=== PATIENT | female | born 1970 | race Caucasian/White ===

== ENCOUNTER → 2016-11-10 | Outpatient (CLI) | payer BC ==
[~2016-11-10] MED LIST: B COCAP3 PO; BND25X PO; CARV6.252 PO; CYCL10TA6 PO; DICL-201 PO; DICL1TAB5 PO; FIBER TABLETS; FLX10 PO; IBUP1CAP9 PO; LRTUNK; MULT-506 PO; MULT-884 PO; OMEG10007 PO; OMEG5CAP PO; OXYC-57 PO; STOOL SOFTENER; TRAM-10 PO; VITAMIN B COMPLEX; VNTHFA/IN INH
== END | disposition home or self-care (01) ==
LOC: C.PAPS 13:31
PROVIDERS: ATTEND Obstetrics & Gynecology
DX: Z01.419 Encounter for gynecological examination (general) (routine) without abnormal findings (principal)

== ENCOUNTER → 2016-11-10 | Outpatient (CLI) | payer BC | END | disposition home or self-care (01) | LOC: C.PATHSPEC 13:22 | PROVIDERS: ATTEND Obstetrics & Gynecology | DX: N92.0 Excessive and frequent menstruation with regular cycle (principal) ==

== ENCOUNTER → 2016-12-15 | Day surgery (SDC) | payer BC ==
[2016-12-07 11:12] VITALS: Ht 157.5 cm; Wt 86.4 kg
[~2016-12-15] VITALS: Ht 157.5 cm; Wt 86.4 kg
[~2016-12-15] MED LIST changes: +ATROPINE SULFATE 0.1 MG/ML 5ML SYR IV PRN; -BND25X PO; -CYCL10TA6 PO; +DEXAMETHASONE SOD INJ 4 MG/ML VIAL ONE; -DICL1TAB5 PO; +EpHEDrine SULFATE INJ 50 MG/ML AMP IV PRN; +FENTANYL CITRATE INJ 50 MCG/1 ML 2 ML VIAL ONE; -FIBER TABLETS; +FLUMAZENIL 0.1 MG/1 ML 10 ML VIAL IV PRN; +GLYCOPYRROLATE INJ 0.2 MG/ML VIAL ONE; +HYDROmorphone INJ 2 MG/ML SYR/VIAL IV PRN; +IBUPROFEN 600 MG TAB PO PRN; +KETOROLAC TROMETHAMINE 30 MG/ML VIAL IV. PRN; +KETOROLAC TROMETHAMINE 30 MG/ML VIAL ONE; +LABETALOL HCL IV 5 MG/ML 20ML IV PRN; +LACTATED RINGER'S 1000ML 1,000 ML IV SCH; +LIDOCAINE HCL 2% 2 ML VIAL (20MG/ML) ONE; -LRTUNK; +MEPERIDINE HCL 25 MG/ML CARP IV PRN; +MIDAZOLAM HCL 1 MG/ML 2ML VIAL ONE; -MULT-884 PO; +NALOXONE HCL 0.4 MG/1 ML VIAL/CARP IV PRN; +NURSING VERBAL MED ORDER ONE; -OMEG10007 PO; +ONDANSETRON INJ 2 MG/ML 2 ML VIAL IV PRN; +ONDANSETRON INJ 2 MG/ML 2 ML VIAL ONE; +OXYCODONE/ACETAMINOPHEN 5-325 TAB PO PRN; +PHENYLEPHRINE 100MCG/ML 5ML SYR IV PRN; +PROMETHAZINE HCL INJ 25 MG in SODIUM CHLORIDE 0.9% 50ML 50 ML IV PRN; +PROPOFOL IV EMULSION 10 MG/ML 20 ML VIAL IV ONE; +SODIUM CHLORIDE 0.9% 1000ML 1,000 ML IV SCH; -STOOL SOFTENER; -VITAMIN B COMPLEX
--- NOTE | 2016-12-15 07:52 | History & Physical Bridge - [place] ---
H&P Re-Evaluation Bridge Note: I have examined the patient, reviewed the History & Physical and in the interval since the performance of the History & Physical I have noted the following changes of clinical significance: No changes noted
--- NOTE | 2016-12-15 09:24 | [facility] Post Operative Brief Note ---
Immediate Operative Summary Operative Date Dec 15, 2016. Pre-Operative Diagnosis Menorrhagia Post-Operative Diagnosis Same Procedure(s) Performed Dilatation And Curettage, Hysteroscopy with Rollerball Endometrial Ablation Surgeon Dr. Gaffney Buffet Server Surgeon(s) None Estimated Blood Loss 20ml Findings Bilateral tubal ostia seen Specimens A. Endometrial Curettings Drains None Anesthesia General Complication(s) None Disposition Recovery Room / PACU
--- NOTE | 2016-12-15 09:25 | Discharge Instructions ---
Discharge Instructions Admission Reason for Admission: Menorrhagia Discharge Discharge Diagnosis / Problem: Menorrhagia Discharge Goals Goal(s): Routine recovery after surgery Activity Recommendations Activity Limitations: per Instructions/Follow-up section . Instructions / Follow-Up Instructions / Follow-Up ACTIVITY RECOMMENDATIONS: * Avoid tampons, douching, hot tubs, pools, and intercourse until bleeding has stopped. * May shower as usual. * No strenuous activity for 24-48 hours. After 24-48 hours, you may do anything you feel like doing (driving and sports are okay). SPECIAL CARE INSTRUCTIONS: Special Diet: * Mild nausea may occur in the immediate post-operative period. * Take clear liquids such as tea, cola or bouillon until all nausea has subsided; you may then resume your normal diet. Special Care: * Light bleeding and vaginal spotting can last from a few days to 3-4 weeks. Call your doctor if bleeding becomes heavier than the heaviest part of your period. * Check your temperature twice a day for one week. If it goes above 100.4 degrees Fahrenheit (38.0 Celsius), notify your doctor. * Call your doctor's office for an appointment for 6 weeks after your surgery. FOLLOW-UP VISIT: Call your doctor's office for an appointment for 6 weeks after your surgery. Current Hospital Diet Patient's current hospital diet: Discharge Diet Recommended Diet: Regular Diet Procedures Procedures Performed: Dilatation And Curettage, Hysteroscopy with Rollerball Endometrial Ablation Pending Studies Studies pending at discharge: no Medical Emergencies . Who to Call and When: Medical Emergencies: If at any time you feel your situation is an emergency, please call 911 immediately. . Non-Emergent Contact Non-Emergency issues call your: Primary Care Provider . . "Provider Documentation" section prepared by Simone Gaffney. VTE Core Measure Inpt VTE Proph given/why not?: Treatment not indicated
--- NOTE | 2016-12-15 09:37 | OPERATIVE REPORT ---
DATE OF OPERATION: 12/15/2016 PREOPERATIVE DIAGNOSIS: Menorrhagia. POSTOPERATIVE DIAGNOSIS: Menorrhagia. PROCEDURE: Hysteroscopy, D\T\C, endometrial ablation with rollerball. SURGEON: Dr. Gaffney. WOOD BUFFER: None. ESTIMATED BLOOD LOSS: 20 mL. FINDINGS: The patient did appear to have bilateral tubal ostia visualized. SPECIMENS: Endometrial curettings. DRAINS: None. ANESTHETIC: General. COMPLICATIONS: None. DISPOSITION: Recovery. Elyssa was given a general anesthetic, prepped and draped in dorsolithotomy position in [facility]. Bladder drained. Uterus examined and found to be slightly anteverted. Weighted speculum placed in the vagina, single tooth tenaculum on anterior lip of the cervix. Cervix then carefully and methodically dilated starting with #13 dilator progressing to a #23 dilator. On inspection with a 5 mm hysteroscope using sorbitol as her base solution, I was able to view the cavity. There were no defects, perforation or pathology seen. 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 We elected to perform rollerball ablation. First, we performed D\T\C curettage to obtain tissue and then using the dilator we dilated further progressively to a #29 dilator. Using a 10 mm operative hysteroscope using cut setting 200 coag 100 we ablated the endometrium primarily using cut. First starting at the tubal ostial regions then continuing down to incorporate the entire endometrium down to the internal cervical os. Once the ablation was complete, hemostasis was excellent. IV Toradol was given. Instruments removed from the cervix and vagina. Sponge and instrument counts correct. I attest to the content of the Intraoperative Record and any orders documented therein. Any exceptio ns are noted below.
[2016-12-15] MEDS: FENTANYL CITRATE INJ 50 MCG/1 ML 2 ML VIAL IV PRN ×2 (09:44→09:55)
--- NOTE | 2016-12-15 10:09 | Anesthesia Progress Nt - [facility] ---
Anesthesia Post Op Note Date & Time Dec 15, 2016 at 10:09 Vital Signs Pain Intensity: 4.0 Vital Signs Past 12 Hours Date Time Temp Pulse Resp B/P Pulse Ox O2 Delivery O2 Flow Rate FiO2 12/15/16 09:35 36.5 52 16 137/36 97 Mask 6 12/15/16 08:44 36.9 89 16 191/108 99 Room Air Notes Mental Status: alert / awake / arousable, participated in evaluation Pt Amnestic to Procedure: Yes Nausea / Vomiting: adequately controlled Pain: adequately controlled Airway Patency, RR, SpO2: stable & adequate BP & HR: stable & adequate Hydration State: stable & adequate Anesthetic Complications: no major complications apparent
[2016-12-15 10:10] VITALS: TEMP 36.5
[2016-12-15 10:44] VITALS: BP 130/79; PULSE 78; O2SAT 98
== END | disposition home or self-care (01) ==
LOC: X.SURG 07:51
PROVIDERS: ATTEND Obstetrics & Gynecology
DX: N85.9 Noninflammatory disorder of uterus, unspecified (principal); N92.0 Excessive and frequent menstruation with regular cycle; Z87.891 Personal history of nicotine dependence; Z88.1 Allergy status to other antibiotic agents

== ENCOUNTER 2017-06-19 14:23 | Emergency (ER) | payer BC ==
[~2017-06-19] VITALS: Ht 157.5 cm; Wt 90.7 kg
[~2017-06-19 14:23] MED LIST changes: -ATROPINE SULFATE 0.1 MG/ML 5ML SYR IV PRN; -CARV6.252 PO; -DEXAMETHASONE SOD INJ 4 MG/ML VIAL ONE; -EpHEDrine SULFATE INJ 50 MG/ML AMP IV PRN; -FENTANYL CITRATE INJ 50 MCG/1 ML 2 ML VIAL ONE; -FLUMAZENIL 0.1 MG/1 ML 10 ML VIAL IV PRN; -GLYCOPYRROLATE INJ 0.2 MG/ML VIAL ONE; -HYDROmorphone INJ 2 MG/ML SYR/VIAL IV PRN; -IBUPROFEN 600 MG TAB PO PRN; -KETOROLAC TROMETHAMINE 30 MG/ML VIAL IV. PRN; -KETOROLAC TROMETHAMINE 30 MG/ML VIAL ONE; -LABETALOL HCL IV 5 MG/ML 20ML IV PRN; -LACTATED RINGER'S 1000ML 1,000 ML IV SCH; -LIDOCAINE HCL 2% 2 ML VIAL (20MG/ML) ONE; -MEPERIDINE HCL 25 MG/ML CARP IV PRN; -MIDAZOLAM HCL 1 MG/ML 2ML VIAL ONE; -NALOXONE HCL 0.4 MG/1 ML VIAL/CARP IV PRN; -NURSING VERBAL MED ORDER ONE; -ONDANSETRON INJ 2 MG/ML 2 ML VIAL IV PRN; -ONDANSETRON INJ 2 MG/ML 2 ML VIAL ONE; -OXYCODONE/ACETAMINOPHEN 5-325 TAB PO PRN; -PHENYLEPHRINE 100MCG/ML 5ML SYR IV PRN; -PROMETHAZINE HCL INJ 25 MG in SODIUM CHLORIDE 0.9% 50ML 50 ML IV PRN; -PROPOFOL IV EMULSION 10 MG/ML 20 ML VIAL IV ONE; -SODIUM CHLORIDE 0.9% 1000ML 1,000 ML IV SCH
[2017-06-19 14:32] VITALS: TEMP 36.6; Ht 157.5 cm; Wt 90.7 kg
[2017-06-19] MEDS ORDERED: SODIUM CHLORIDE 0.9% 1000ML 1,000 ML IV STA (17:11)
[2017-06-19] MEDS ORDERED: CARV6.252 PO (17:13)
--- NOTE | 2017-06-19 17:31 | DIAGNOSTIC IMAGING REPORT ---
SINGLE VIEW CHEST CLINICAL HISTORY: Palpitations. FINDINGS: An AP, portable, upright chest radiograph is compared to study dated 10/02/2014. The examination is degraded by portable technique and patient rotation. The cardiomediastinal silhouette is unremarkable. The lungs and pleural spaces are clear. No pneumothorax is seen. The bony thorax is grossly intact. IMPRESSION: No active disease in the chest. Electronically signed by: Daniel Fragoso M.D. 06/19/2017 5:30 PM Dictated Date/Time: 06/19/2017 5:29 PM
[2017-06-19 17:34] LABS: BASO % 0.2 %; BASO ABS # 0.02 K/uL (0-0.2); COMPLETE YES; EOS % 2.3 %; HEMATOCRIT 43.8 % (37-47); IG% 0.2 %; LYMPH % 26.1 %; LYMPH ABS # 2.53 K/uL (1.2-3.4); MEAN CELL VOLUME 84.4 fL (80-100); MEAN CORPUSCULAR HEMOGLOBIN 30.1 pg (25-34); MEAN CORPUSCULAR HGB CONC 35.6 g/dl (32-36); MEAN PLATELET VOLUME 10.7 fL (7.4-10.4); MONO % 11.2 %; PLATELET COUNT 233 K/uL (130-400); RED BLOOD COUNT 5.19 M/uL (4.2-5.4); WHITE BLOOD COUNT 9.71 K/uL (4.8-10.8)
[2017-06-19 17:56] LABS: ALT/SGPT 22 U/L (12-78); BLOOD UREA NITROGEN 9 mg/dl (7-18); BUN/CREATININE RATIO 10.3 (10-20); CALCIUM 8.9 mg/dl (8.5-10.1); CARBON DIOXIDE 27 mmol/L (21-32); CHLORIDE 108 mmol/L (98-107); GLUCOSE 83 mg/dl (70-99); POTASSIUM 3.8 mmol/L (3.5-5.1); PREG INTERNAL NEGATIVE QC NEG CLEAR BACKGROUND; PREG INTERNAL POSITIVE QC POS CONTROL LINE; SODIUM 141 mmol/L (136-145)
[2017-06-19 18:13] LABS: ALKALINE PHOSPHATASE 66 U/L (45-117); AST/SGOT 18 U/L (15-37); MAGNESIUM 2.3 mg/dl (1.8-2.4)
--- NOTE | 2017-06-19 19:17 | EMERGENCY ROOM VISIT NOTE ---
History First contact with patient: 16:40 Chief Complaint: DIZZY Stated Complaint: FLUTTERING IN CHEST, DIZZINESS Nursing Triage Summary: triage note: pt ambulatory to triage. pt reports for the past week "i have had fluttering in my chest." pt also reports dizziness. History of Present Illness The patient is a 46 year old female who presents to the Emergency Room with complaints of palpitations intermittently for the past 6 days. The patient states that she has had a fluttering, tight feeling in her chest. She states that she has at least one episode daily and the symptoms last for 30 minutes to 1 hour. The patient states that this morning, she developed sharp pains in her chest. She sometimes has dizziness when the symptoms occur. She has had issues with palpitations intermittently since September. She states that she has been treated for hypertension and has had palpitations as side effects of her medications, including lisinopril and hydrochlorothiazide. She reports she has been taking carvedilol recently which seems to be working well for her. She states that she had an echo 3 years ago due to chest pain but has not had cardiology follow-up since then. She denies any syncope, lightheadedness, shortness of breath. She denies any drug use or new medications. Review of Systems A complete 10 point review of systems was reviewed with the patient with pertinent positives and negatives as per history of present illness. All else were negative. Family History No pertinent family history Social History Smoking Status: Never Smoker Occupation Status: employed Current/Historical Medications Scheduled Carvedilol (Coreg), 6.25 MG PO BID Scheduled PRN Albuterol Hfa (Ventolin Hfa), 2-4 PUFFS INH Q6H PRN for SOB/Wheezing Physical Exam Vital Signs Date Time Temp Pulse Resp B/P (MAP) Pulse Ox O2 Delivery O2 Flow Rate FiO2 06/19/17 19:31 74 18 153/92 98 06/19/17 17:31 87 16 145/89 98 Room Air 06/19/17 14:32 36.6 101 18 158/110 97 Room Air Physical Exam VITALS: Vitals are noted on the nurse's note and reviewed by myself. Vital signs stable. GENERAL: This is a 46-year-old female, in no acute distress, nondiaphoretic, well-developed well-nourished. HEENT: Normocephalic. PERRLA. EOMI. Mucous membranes moist. Neck is supple without nuchal rigidity. HEART: Regular rate and rhythm without murmurs gallops or rubs. LUNGS: Clear to auscultation bilaterally without wheezes, rales or rhonchi. NEURO: Patient was alert and oriented to person place and time. Medical Decision & Procedures ER Provider Diagnostic Interpretation: SINGLE VIEW CHEST CLINICAL HISTORY: Palpitations. FINDINGS: An AP, portable, upright chest radiograph is compared to study dated 10/02/2014. The examination is degraded by portable technique and patient rotation. The cardiomediastinal silhouette is unremarkable. The lungs and pleural spaces are clear. No pneumothorax is seen. The bony thorax is grossly intact. IMPRESSION: No active disease in the chest. Laboratory Results 06/19/17 17:19 Red Blood Count 5.19, Mean Corpuscular Volume 84.4, Mean Corpuscular Hemoglobin 30.1, Mean Corpuscular Hemoglobin Concent 35.6, Mean Platelet Volume 10.7, Neutrophils (%) (Auto) 60.0, Lymphocytes (%) (Auto) 26.1, Monocytes (%) (Auto) 11.2, Eosinophils (%) (Auto) 2.3, Basophils (%) (Auto) 0.2, Neutrophils # (Auto ) 5.83, Lymphocytes # (Auto) 2.53, Monocytes # (Auto) 1.09, Eosinophils # (Auto ) 0.22, Basophils # (Auto) 0.02 06/19/17 17:19 Test 06/19/17 17:19 White Blood Count 9.71 K/uL (4.8-10.8) Red Blood Count 5.19 M/uL (4.2-5.4) Hemoglobin 15.6 g/dL (12.0-16.0) Hematocrit 43.8 % (37-47) Mean Corpuscular Volume 84.4 fL (80-100) Mean Corpuscular Hemoglobin 30.1 pg (25-34) Mean Corpuscular Hemoglobin Concent 35.6 g/dl (32-36) Platelet Count 233 K/uL (130-400) Mean Platelet Volume 10.7 fL (7.4-10.4) Neutrophils (%) (Auto) 60.0 % Lymphocytes (%) (Auto) 26.1 % Monocytes (%) (Auto) 11.2 % Eosinophils (%) (Auto) 2.3 % Basophils (%) (Auto) 0.2 % Neutrophils # (Auto) 5.83 K/uL (1.4-6.5) Lymphocytes # (Auto) 2.53 K/uL (1.2-3.4) Monocytes # (Auto) 1.09 K/uL (0.11-0.59) Eosinophils # (Auto) 0.22 K/uL (0-0.5) Basophils # (Auto) 0.02 K/uL (0-0.2) RDW Standard Deviation 40.7 fL (36.4-46.3) RDW Coefficient of Variation 13.2 % (11.5-14.5) Immature Granulocyte % (Auto) 0.2 % Immature Granulocyte # (Auto) 0.02 K/uL (0.00-0.02) Anion Gap 6.0 mmol/L (3-11) Est Creatinine Clear Calc Drug Dose 81.8 ml/min Estimated GFR () 88.9 Estimated GFR (Non- 76.7 BUN/Creatinine Ratio 10.3 (10-20) Calcium Level 8.9 mg/dl (8.5-10.1) Magnesium Level 2.3 mg/dl (1.8-2.4) Total Bilirubin 0.2 mg/dl (0.2-1) Aspartate Amino Transf (AST/SGOT) 18 U/L (15-37) Alanine Aminotransferase (ALT/SGPT) 22 U/L (12-78) Alkaline Phosphatase 66 U/L (45-117) Troponin I < 0.015 ng/ml (0-0.045) Total Protein 7.5 gm/dl (6.4-8.2) Albumin 3.8 gm/dl (3.4-5.0) Globulin 3.7 gm/dl (2.5-4.0) Albumin/Globulin Ratio 1.0 (0.9-2) Thyroid Stimulating Hormone (TSH) 2.360 uIu/ml (0.300-4.500) Human Chorionic Gonadotropin, Qual NEG (NEG) Medications Administered Medications (Trade) Dose Ordered Sig/Negrita Route Start Time Stop Time Status Last Admin Dose Admin Sodium Chloride 1,000 ml @ 999 mls/hr Q1H1M STAT IV 06/19/17 17:11 06/19/17 18:11 DC 06/19/17 17:26 999 MLS/HR ECG Rate (beats per minute): 93 Rhythm: normal sinus Findings: nonspecific-ST abn (Anterolateral) Change: no significant change ED Course The patient was evaluated as above. Labs were drawn and IV access was obtained. Patient was medicated with 1 L normal saline solution. Patient was reevaluated and felt better after receiving fluids. Discharge instructions were reviewed with the patient. The patient verbalized understanding of my assessment and treatment plan and was discharged home in good condition. Medical Decision Differential diagnosis includes acute coronary syndrome, pulmonary embolism, arrhythmia, thyroid abnormalities, electrolyte abnormality, myocarditis, endocarditis, among others. The patient is a 46-year-old female who presents today complaining of palpitations. Labs revealed no leukocytosis, anemia or concerning electrolyte abnormalities. Serum hCG was negative. TSH showed a euthyroid state. Chest x- ray was unremarkable. EKG showed nonspecific T-wave abnormalities which appear to be similar to patient's previous EKG. The patient did have some episodes of palpitations while on the electronic device monitor which seemed to correlate with PACs. There were no runs of any concerning arrhythmias. The patient was encouraged to follow up with cardiology or her primary care provider. She may need a Holter monitor and echocardiogram. The patient's case was reviewed with Dr. Johns, ED attending physician, who agreed with my assessment and treatment plan. Based on the patient's presentation and work up, I feel the patient is stable for outpatient treatment. The patient was educated to return to the emergency department for any worsening of their current condition or new/concerning symptoms. She will follow up with her PCP. Medication Reconcilliation Current Medication List: was personally reviewed by me Blood Pressure Screening Patient's blood pressure: Elevated blood pressure Blood pressure disposition: Referred to PCP Impression Primary Impression: Palpitations Departure Information Dispostion Home / Self-Care Condition GOOD Referrals Konrad Freeman M.D. (PCP) Patient Instructions My [facility] [employer] [facility] Additional Instructions The monitor today showed some premature atrial contractions. These may be the cause of your heart fluttering. You may need further testing such as an echocardiogram or Holter monitor. You may follow up with your primary care provider or cardiology to schedule this. Return to the emergency department with severe chest pain, shortness of breath, worsening symptoms or any other new/concerning symptoms.
[2017-06-19 19:31] VITALS: BP 153/92; PULSE 74; O2SAT 98
== END 2017-06-19 19:32 | disposition home or self-care (01) ==
LOC: C.EDB 14:24 → C.EDC 19:32
DX: R00.2 Palpitations (principal)

== ENCOUNTER 2019-05-17 07:41 | Inpatient (IN) ==
--- OUTSIDE RECORDS SUMMARY | 2019-05-17 07:47 | External Medical Summary | Continuity of Care Document ---
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 Refills: 0 Fish Oil CAPS , M.D. Refills: 0 Vitamin B Complex TABS , M.D. Refills: 0 Ibuprofen CAPS , M.D. Refills: 0 Cyclobenzaprine HCl - 7.5 MG Oral Tablet , M.D. Refills: 0 Diclofenac Sodium 75 MG Oral Tablet Delayed Release , M.D. Refills: 0 Procedures History of Colposcopy With Loop Electrode Excision Of The Ce rvix Status: Completed History of Oral Surgery Tooth Extraction Status: Completed Immunizations Immunizations not documented Family History Sister Family history of Idiopathic Thrombocytopenic Purpura Status : Active Unknown Family Member Family history of Thyroid Disorder (V18.19) Status: Active Comments: Family History Brother Family history of Behcet's Syndrome Status: Active Family history of Compartment Syndrome Status: Active Mother Family history of aortic aneurysm (V17.49) (Z82.49) Status: Active Family history of hypothyroidism (V18.19) (Z83.49) Status: A ctive Father Family history of hypertension (V17.49) (Z82.49) Status: Act peter Social History - Smoking Status Former smoker Plan of Treatment Planned Observations Planned Goals not documented Results No Known Results Results not documented
[2019-05-17] MEDS ORDERED: fentaNYL citrate 100 MCG/2 ML VIAL IV STA ×2 (07:55→09:49)
[2019-05-17] MEDS ORDERED: SODIUM CHLORIDE 0.9% 1000ML 1,000 ML IV ONE (07:55)
--- NOTE | 2019-05-17 08:14 | Emergency Department Note ---
ED Provider Note CHIEF COMPLAINT: Fall, left ankle injury HISTORY OF PRESENTING ILLNESS: This is a 48-year-old female who presents to the emergency department via EMS with complaint of a fall in the left ankle injury. Patient states that she was getting ready for a yard sale and was carrying a large box down her front steps, states she missed 2-3 steps and fell forward landing on the box. She denies hitting her head and denies loss of consciousness. She is unsure exactly how the ankle was injured, but states that her left ankle "felt floppy and like it was out of place." The ankle is severely painful with any movement, she has noticed some mild swelling and bruising as well. She states the pain in the ankle is bothering her the most, it is throbbing, constant, worse with movement, better with rest, and currently rates it as 5/10. She received a dose of IV fentanyl from EMS in route, which she states did help with the pain, but she states it is starting to worsen again. She reports a previous sprain to this ankle, but denies any other frac tures or surgeries. She also has an abrasion to her right knee and right ankle, but states she does not have pain in these joints. She has not attempted to ambulate since the injury. She denies any chest pain, abdominal pain, back pain, neck pain, shortness of breath, dizziness or syncope, headache, or vision changes. She does not take any blood thinner medication. Her tetanus is up-to-date. She denies chance of , noting that she had a uterine ablation in the past. REVIEW OF SYSTEMS: A complete 10 point review of systems was reviewed with the patient with pertinent positives and negatives as per history of present illness. All else were negative. PAST MEDICAL HISTORY: Hypertension, palpitations, uterine ablation SOCIAL HISTORY: Lives at home, denies tobacco use ALLERGIES: Reviewed in chart PHYSICAL EXAM: CONSTITUTIONAL: Pleasant and cooperative. No acute distress. Well appearing and well nourished. HEENT: Normocephalic, atraumatic. PERRL, EOMI. airway patent. NECK: Supple, full active range of motion without discomfort. No midline tenderness to palpation of the cervical spine. RESPIRATORY: Clear to auscultation bilaterally with no wheezing, crackles, rhonchi or stridor. Equal expansion bilaterally. CARDIOVASCULAR: Regular rate and rhythm with no murmurs, rubs or gallops. Normal peripheral perfusion, 2+ distal pulses in all 4 extremities. No edema. GASTROINTESTINAL: Soft, nontender, nondistended. No rebound tenderness or guarding. Bowel sounds present in all quadrants. No CVA tenderness bilaterally. MUSCULOSKELETAL: The left ankle is obviously deformed, mildly swollen throughout, tender over both the medial malleolus and the lateral malleolus. Th ere is a wound over the medial aspect of the ankle with some bleeding, concerning for open fracture. There is fifth metatarsal tenderness. There is no tenderness over the rest of the foot. There is tenderness extending about retirement up the tibia/fibula, no proximal tibia/fibular tenderness, no pain with range of motion in the left knee. No tenderness over the left hip. The foot and toes are warm and well-perfused. Dorsalis pedis pulse 2+. Sensation to pain and light touch is intact. Capillary refill less than 2 seconds. INTEGUMENTARY: No rash or other significant dermatologic conditions noted. NEUROLOGIC: Alert and oriented X 4 with normal affect. Normal speech. ED COURSE AND MEDICAL DECISION MAKING: CC: Patient presenting with complaint of fall, left ankle injury DIFFERENTIAL DIAGNOSIS: Includes, but not limited to ankle sprain/strain, contusion, hematoma, abrasion, open fracture, dislocation, among others IMAGING: LEFT FOOT 3 VIEWS CLINICAL HISTORY: Fall with left foot injury. FINDINGS: 3 views of the left foot are obtained. No prior studies are available for comparison at the time of dictation. The skeletal structures are well mineralized. Distal tibial and fibular fractures are noted in the ankle. There is a distracted avulsion fracture of the medial malleolus. No fracture is seen in the foot. The joint spaces of the foot are preserved. Soft tissue edema, joint effusion, subcutaneous gas are noted involving the ankle. IMPRESSION: 1. There is no radiographic evidence of left foot fracture. 2. Distal ankle fractures as above. ----- XR ankle LT min 3V routine CLINICAL HISTORY: 48 years-old Female presenting with fall, injury. TECHNIQUE: Frontal, oblique, and lateral views of the left ankle were obtained. COMPARISON: None. FINDINGS: Transversely oriented fracture of the medial malleolus at the level of the ankle mortise. 3 mm of lateral displacement of the fracture fragment relative to the patella. 5-6 mm of diastases at the fracture plane. Obliquely oriented fracture of the distal fibular metaphysis extending from the posterior cortex proximally to the anterior cortex distally and from the lateral cortex proximally to the medial cortex distally. This is at the level of the ankle mortise. This is an open fracture with extensive associated soft tissue emphysema and soft tissue swelling along the anterior and medial lower leg. The distal fibular fracture fragment remains congruent with the talus. A posterior malleolar fracture is not radiographically apparent. Os trigonum suspected. IMPRESSION: Open grade 4 supination external rotation injury pattern. Medial and lateral malleoli fractures with a presumed posterior malleoli fracture. ----- XR tibia fibula LT 2V CLINICAL HISTORY: 48 years-old Female presenting with fall, injury. TECHNIQUE: Frontal and lateral views of the left lower leg were obtained. COMPARISON: None. FINDINGS: The joint congruent. Transverse fracture of the medial malleolus with mild lat eral displacement and diastases. Oblique fracture of the distal fibula level of the syndesmosis. Mild comminution of the proximal aspect of the distal fibular fracture plane. Posterior malleolus fracture also noted. Extensive soft tissue swelling and soft tissue emphysema along the anterior aspect of the lower leg consistent with an open fracture injury. No additional more proximal fracture is evident. IMPRESSION: Montiel B grade 4 supination external rotation injury pattern with open trimalleolar fractures. MEDICATION RECONCILIATION: I attest that I have personally reviewed the patient's current medication list. INITIAL VITAL SIGNS REVIEW: I reviewed the patient's initial vital signs and interpret them as follows: T: Afebrile; BP: Normotensive; HR: Within normal limits; RR: Within normal limits; Pulse Ox: Within normal limits on room air. Blood pressure screening: The patient was found to have normal blood pressure on screening and does not require follow-up for repeat blood pressure check. MDM SUMMARY: Patient was evaluated at bedside, history and physical exam performed. Patient is alert and oriented, in no acute distress, but appears uncomfortable from pain, resting in stretcher. She is neurologically intact no focal deficits. There is obvious deformity of the left ankle, with a medial wound suspicious for an open fracture. The Betadine soaked gauze was placed over the wound pending x-rays. She is neurovascularly intact distal to the injury. Abrasions noted to the right knee and right ankle, but no joint tenderness. Orders were placed at bedside for IV fentanyl for pain, x-rays of the foot, ankle, and tibia/fibula to evaluate for trauma. Patient discussed with Dr. Olivas, who agrees with my assessment, plan, and disposition. Imaging reviewed as above, noting a grade 4 Montiel B open fracture. The patient is being kept NPO, she last ate or drank last evening. 2,000mg IV Ancef ordered for open fracture prophylaxis. I spoke on the phone with Dalton Bedoya PA-C with orthopedic surgery, who agrees to evaluate the patient. Preop chest x-ray, EKG, and labs were ordered. Patient was placed in a posterior Ortho-Glass splint for stabilization by the technical services coordinator under my supervision, position was satisfactory and patient was neurovascularly intact upon recheck. Patient reassessed multiple times throughout ED stay, she has remained hemodynamically stable, neurovascularly intact, and her pain has been well controlled with IV fentanyl. The patient was updated on all results and plan for admission and surgery, she verbalized understanding and was agreeable to this plan. Plan is for surgery with Dr. Salazar this afternoon. The patient was stable at time of admission. The chart was completed utilizing [employer] voice recognition software. Grammatical errors, random word insertions, pronoun errors, and incomplete sentences are an occasional consequence of this system due to software limitations, ambient noise, and hardware issues. Any formal questions or concerns about the content, text, or information contained within the body of this dictation should be directly addressed to the nurse practitioner for clarification. Impression & Plan Open trimalleolar fracture Past Med/Surg History Medical History Palpitations (Acute) HTN (hypertension) (Chronic) Chest pain (Resolved) Social History Preferred Language: Citizen Of [place] Feels Safe at Home: Yes Smoking Status: Former smoker Results & Data Vital Signs Vital Signs - 24 hr 05/17/19 07:50 05/17/19 10:33 Temperature 36.5 C Temperature Source Oral Sepsis Recent Fever Within 48 Hours No Sepsis New/Unexplained Change in Mental Status No Sepsis Action Taken by Nursing No Action Required Pulse Rate 82 Pulse Rate [Finger] 86 Pulse Rhythm Regular Pulse Strength Normal Respiratory Rate 20 20 Respiratory Effort / Characteristics Non-Labored Spontaneous Respiratory Depth Normal Respiratory Pattern Regular Blood Pressure 129/75 Blood Pressure [Right Arm] 130/95 Blood Pressure Mean 93 Blood Pressure Mean [Right Arm] 106 Blood Pressure Position Lying Pulse Oximetry 92 96 Oxygen Delivery Method Room Air Room Air Laboratory Data Result diagrams: 05/17/19 10:30 05/17/19 10:30 Lab Results 05/17/19 Range/Units 10:30 WBC 11.49 H (4.8-10.8) K/uL RBC 5.13 (4.2-5.4) M/uL Hgb 15.1 (12.0-16.0) g/dL Hct 43.4 (37-47) % MCV 84.6 (80-100) fL MCH 29.4 (25-34) pg MCHC 34.8 (32-36) g/dL RDW Std Deviation 39.8 (36.4-46.3) fL RDW Coeff of Obdulio 12.9 (11.5-14.5) % Plt Count 219 (130-400) K/uL MPV 10.8 H (7.4-10.4) fL Immature Gran % (Auto) 0.2 % Neut % (Auto) 83.4 % Lymph % (Auto) 10.5 % Greenlee % (Auto) 5.4 % Eos % (Auto) 0.3 % Baso % (Auto) 0.2 % Immature Gran # (Auto) 0.02 (0.00-0.02) K/uL Neut # (Auto) 9.59 H (1.4-6.5) K/uL Lymph # (Auto) 1.21 (1.2-3.4) K/uL Greenlee # (Auto) 0.62 H (0.11-0.59) K/uL Eos # (Auto) 0.03 (0-0.5) K/uL Baso # (Auto) 0.02 (0-0.2) K/uL Administered Medications Discontinued Medications Fentanyl Citrate (Fentanyl Citrate) 50 mcg IV NOW STA Stop: 05/17/19 07:56 Last Admin: 05/17/19 08:33 Dose: 50 mcg Documented by: [id number] Fentanyl Citrate (Fentanyl Citrate) 50 mcg IV NOW STA Stop: 05/17/19 09:50 Last Admin: 05/17/19 10:10 Dose: 50 mcg Documented by: [id number] Sodium Chloride (Nss 1000ml) 1,000 mls @ 999 mls/hr IV .Q1H1M ONE Stop: 05/17/19 08:55 Last Infusion: 05/17/19 10:10 Dose: 0 mls/hr Documented by: [id number] Admin: 05/17/19 08:35 Dose: 999 mls/hr Documented by: [id number] Cefazolin Sodium (Ancef 2000mg) 2,000 mg in 15 mls @ 3.75 mls/min IV NOW STA Stop: 05/17/19 08:18 Last Admin: 05/17/19 08:38 Dose: 3.75 mls/min Documented by: [id number] Discharge Plan Visit Data Chief Complaint: Fall ED Provider: Gwyn Olivas ED Midlevel Provider: Flavia Chu Discharge Problem: Open trimalleolar fracture Patient Disposition: Admitted As Inpatient Condition: Good Forms Stand Alone Forms: [employer] Prescriptions Prescriptions: No Action metoprolol succinate 50 mg tablet extended release 24 hr 50 mg PO DAILY RF: 0 Referrals Referrals: Konrad Freeman MD [Primary Care Provider] - Discharge Problem: Open trimalleolar fracture Qualifiers: Encounter type: initial encounter Laterality: left
[2019-05-17] MEDS ORDERED: CEFAZOLIN 2000MG 2,000 MG/15 ML SYR IV STA (08:15)
--- NOTE | 2019-05-17 08:24 | XRay Report ---
LEFT FOOT 3 VIEWS CLINICAL HISTORY: Fall with left foot injury. FINDINGS: 3 views of the left foot are obtained. No prior studies are available for comparison at the time of dictation. The skeletal structures are well mineralized. Distal tibial and fibular fractures are noted in the ankle. There is a distracted avulsion fracture of the medial malleolus. No fracture is seen in the foot. The joint spaces of the foot are preserved. Soft tissue edema, joint effusion, subcutaneous gas are noted involving the ankle. IMPRESSION: 1. There is no radiographic evidence of left foot fracture. 2. Distal ankle fractures as above. Electronically signed by: Daniel Fragoso M.D. 05/17/2019 8:22 AM
--- NOTE | 2019-05-17 08:24 | XRay Report ---
XR ankle LT min 3V routine CLINICAL HISTORY: 48 years-old Female presenting with fall, injury. TECHNIQUE: Frontal, oblique, and lateral views of the left ankle were obtained. COMPARISON: None. FINDINGS: Transversely oriented fracture of the medial malleolus at the level of the ankle mortise. 3 mm of lat eral displacement of the fracture fragment relative to the patella. 5-6 mm of diastases at the fractu re plane. Obliquely oriented fracture of the distal fibular metaphysis extending from the posterior c ortex proximally to the anterior cortex distally and from the lateral cortex proximally to the medial cortex distally. This is at the level of the ankle mortise. This is an open fracture with extensive associated soft tissue emphysema and soft tissue swelling along the anterior and medial lower leg. Th e distal fibular fracture fragment remains congruent with the talus. A posterior malleolar fracture i s not radiographically apparent. Os trigonum suspected. IMPRESSION: Open grade 4 supination external rotation injury pattern. Medial and lateral malleoli fractures with a presumed posterior malleoli fracture. Electronically signed by: Norman Saldaña M.D. 05/17/2019 8:22 AM
--- NOTE | 2019-05-17 08:27 | XRay Report ---
XR tibia fibula LT 2V CLINICAL HISTORY: 48 years-old Female presenting with fall, injury. TECHNIQUE: Frontal and lateral views of the left lower leg were obtained. COMPARISON: None. FINDINGS: The joint congruent. Transverse fracture of the medial malleolus with mild lateral displacement and d iastases. Oblique fracture of the distal fibula level of the syndesmosis. Mild comminution of the pro ximal aspect of the distal fibular fracture plane. Posterior malleolus fracture also noted. Extensive soft tissue swelling and soft tissue emphysema along the anterior aspect of the lower leg consistent with an open fracture injury. No additional more proximal fracture is evident. IMPRESSION: Montiel B grade 4 supination external rotation injury pattern with open trimalleolar fractures. Electronically signed by: Norman Saldaña M.D. 05/17/2019 8:25 AM
--- NOTE | 2019-05-17 09:01 | XRay Report ---
XR chest 1V portable CLINICAL HISTORY: fall COMPARISON STUDY: Chest radiograph January 30, 2019. FINDINGS: Lung volumes are normal. Lungs are clear. There is no pneumothorax or pleural effusion. Car diac size is normal. Mediastinal contours are normal. There is no evidence for pulmonary edema. IMPRESSION: No acute cardiopulmonary findings. Electronically signed by: Rashad Kincaid M.D. 05/17/2019 9:00 AM
[2019-05-17] MEDS ORDERED: ONDANSETRON INJ 2 MG/ML 2 ML VIAL IV PRN ×2 (10:11→14:13)
[2019-05-17] MEDS ORDERED: HYDROmorphone INJ 0.5 MG/0.5 ML SYR IV PRN (10:11)
[2019-05-17] MEDS ORDERED: SODIUM CHLORIDE 0.9% 1000ML 1,000 ML IV SCH ×2 (10:15→18:13)
[2019-05-17 10:42] LABS: Basophils # (auto) 0.02 K/uL (0-0.2); Basophils % (auto) 0.2 %; Eosinophils # (auto) 0.03 K/uL (0-0.5); Eosinophils % (auto) 0.3 %; Hematocrit (blood only) 43.4 % (37-47); Hemoglobin 15.1 g/dL (12.0-16.0); Immature Granulocytes # (auto) 0.02 K/uL (0.00-0.02); Immature Granulocytes % (auto) 0.2 %; Lymphocytes # (auto) 1.21 K/uL (1.2-3.4); Lymphocytes % (auto) 10.5 %; Mean Corpuscular Hgb Conc 34.8 g/dL (32-36); Mean Corpuscular Volume 84.6 fL (80-100); Mean Platelet Volume 10.8 fL (7.4-10.4); Monocytes # (auto) 0.62 K/uL (0.11-0.59); Monocytes % (auto) 5.4 %; Neutrophils # (auto) 9.59 K/uL (1.4-6.5); Neutrophils % (auto) 83.4 %; Platelet Count 219 K/uL (130-400); RDW Coefficient of Variation 12.9 % (11.5-14.5); RDW Standard Deviation 39.8 fL (36.4-46.3); Red Blood Count 5.13 M/uL (4.2-5.4); White Blood Count 11.49 K/uL (4.8-10.8)
[2019-05-17 11:01] LABS: Partial Thromboplastin Ratio 0.9; Partial Thromboplastin Time 25.6 Seconds (21.0-31.0); Prothrombin Time 10.4 Seconds (9.0-12.0)
[2019-05-17 11:05] LABS: Pregnancy Test, Serum Negative (Negative)
[2019-05-17 11:18] LABS: Calcium 8.4 mg/dl (8.5-10.1); Creatinine Clr Calc Pharmacy 86.8 ml/min; Est GFR (African American) 96.6; Est GFR (Non-African American) 83.4; Potassium 4.2 mmol/L (3.5-5.1)
--- NOTE | 2019-05-17 12:16 | History and Physical Report ---
DATE OF ADMISSION: 05/17/2019 CHIEF COMPLAINT: Pain in left ankle. HISTORY OF PRESENT ILLNESS: The patient is a 48-year-old white female who states that she was getting ready for a yard sale this morning early and was carrying a box of clothes down to the driveway when she inadvertently slipped and everted her ankle and fell to the ground. She had immediate pain in the left ankle and was unable to ambulate on it. She had some bleeding noted from a small wound on the medial aspect of the ankle. Her brought her to the Emergency Room where she was seen by the staff. X-rays were taken. It was found that she had a bimalleolar with possible trimalleolar ankle fracture that appeared to be open. She denies any lightheadedness or chest pain or shortness of breath prior to the fall or after the fall and she did not lose consciousness. We have been asked to take care of her left ankle fracture. PAST MEDICAL HISTORY: Hypertension, history of palpitations, pain of which she has had multiple workups for including stress testing, etc., with no true diagnosis. She states that she has not had any chest pain of recent but has had palpitations. She has a history of asthma for which she has not had to use her inhaler in a very long time and it is usually exacerbated by cold. She has a history of renal calculi and a question of ocular migraine headaches, which have caused nystagmus and/or light intolerances. She denies a history of diabetes mellitus, tuberculosis, hepatitis, COPD, or rheumatic fever. PAST SURGICAL HISTORY: She has had a D and C with ablation and a history of EGD. FAMILY HISTORY: Mother with history of hypertension, skin carcinoma and inflammatory bowel disease. Father has a history of hypertension. She has a sister who has a history of ITP and also polymyositis. She has a brother who has a history of autoimmune disorder as well. SOCIAL HISTORY: The patient is a nonsmoker who drinks alcohol rarely and is . MEDICATIONS: Metoprolol 50 mg p.o. daily, albuterol inhaler 1-2 puffs q.4 hours p.r.n. shortness of breath. ALLERGIES: SHE STATES THAT ERYTHROMYCIN CAUSED NAUSEA AND VOMITING, BUT IT WAS APPROXIMATELY 20 YEARS AGO. REVIEW OF SYSTEMS: The patient denies any recent fevers, chills, night sweats, unexplained weight loss or weight gain. No flu. No cold-like symptoms. She states she has had a little bit of an increased cough that is dry, which she relates to allergies. No increased sputum production. No shortness of breath at rest or on exertion. Again, she has not had any chest pain of recent but does have palpitations on occasion. No history of CAD in the past and has had multiple workups from a cardiac standpoint for her chest pain and her palpitations, no chest pressure to speak of of recent. History of asthma, which has not been exacerbated in quite some time. No history of recent bronchitis, pneumonia, or tuberculosis. No hemoptysis. Denies any unusual abdominal pain, no nausea, vomiting, diarrhea, hematemesis, melena, or hematochezia and denies hepatitis. No history of frequent urinary tract infections. No hematuria, pyuria, or dysuria. Positive history of renal calculi. Noted ablation for continued crampy abdominal pain, ablation was done through D and C, but denies any other gynecological issues at this time. Question of ocular migraine headaches, which is part of her differential causing her nystagmus at times and light sensitivity. She states that she is in the process of going to see an heading and priming operator. She denies any hearing changes. Vision changes have been occurring over time for which she does wear bifocals. No recent trouble with her dentition and no recent abscesses, etc. She denies any history of a thyroid disorder or diabetes mellitus. PHYSICAL EXAMINATION: GENERAL: The patient is a mildly obese white female who is alert and oriented x3, in no acute distress, pleasant and cooperative. SKIN: Warm and dry. Turgor is good. HEENT: Head is normocephalic and atraumatic. There is no scleral icterus or injection. Nasal airway is patent. Oral mucosa is pink and moist. NECK: Supple. HEART: Regular rate and rhythm. LUNGS: Clear to auscultation. ABDOMEN: Soft, obese and nontender. Bowel sounds are present x4. GENITALIA AND RECTAL: Not performed at this time. EXTREMITIES: On examination of the patient's left lower extremity, she has some gauze noted over her medial malleolus. There is a mild deformity noted of the left ankle, and upon removing the gauze over the medial malleolus, there is a small wound noted that the bleeding has been taken care of and is no longer actively bleeding. No attempts were made to move the left ankle due to fracture. She is able to move the toes and other than her toes feeling cold, she does have good sensation. Dorsalis pedis pulse bilaterally of the lower extremities is 2/4. She does have a noted abrasion at the dorsum of her right ankle, but has good range of motion of the right ankle and no other pain. She has an abrasion over her right knee that has some gauze over top of it at this point in time, although she denies any other knee pain other than around the abrasion. Range of motion is essentially within normal limits of the right lower extremity. She has no pain in the left knee or left hip. Upper extremities are essentially benign at this time and denies pain in the shoulders, elbows and wrists with good range of motion. Upper extremity pulses are 2/4 bilaterally. MUSCULOSKELETAL: She denies any neck, thoracic or low back pain at this time and there is no gross motor or sensory loss at this time other than due to a fracture of her left ankle. ASSESSMENT: Bimalleolar left ankle fracture, possibly grade 1, open. PLAN: The patient will be placed into a posterior splint and admitted to the hospital with plans for irrigation and debridement of the likely open fracture with ORIF of the bimalleolar ankle fracture. JOSIAS
--- NOTE | 2019-05-17 12:38 | Anesthesiology Consultation ---
Date of Service May 17, 2019 Assessment & Plan (1) Encounter for pre-operative examination: Chart Review Chart Review: Acceptable Risk for Surgery History Surgery Operation Date: 05/17/19 16:35 Proposed Procedures p Left Bimalleolar Fracture Incision and Drainage, Open Reduction Internal Fixation Bimalleolar Fracture - Donavan Salazar DO Height/Weight Height: 5 ft 2 in Weight: 90.7 kg Allergies Allergy/AdvReac Type Severity Reaction Status Date / Time erythromycin base AdvReac Intermediate BAD Verified 05/17/19 07:58 STOMACH REACTION Medications Home Medications Medication Instructions Recorded Confirmed Last Taken metoprolol succinate 50 mg PO DAILY 05/17/19 05/17/19 05/16/19 NPO Date Last Intake of Fluids: 05/16/19 Time Last Intake of Fluids: 23:55 Date Last Intake of Solids: 05/16/19 Time Last Intake of Solids: 17:00 Past Medical History Medical History Asthma no inhaler use in some time Palpitations (Acute) HTN (hypertension) (Chronic) Chest pain (Resolved) Past Family History Family History Other Aortic aneurysm Hypertension Past Surgical History Surgical History H/O dilation and curettage History of esophagogastroduodenoscopy (EGD) Social History Smoking Status: Former smoker Physical Exam Vital Signs Last Vital Signs Temp 37.1 C 05/17/19 12:22 Pulse 95 H 05/17/19 12:22 Resp 18 05/17/19 12:22 BP 147/92 H 05/17/19 12:22 Pulse Ox 95 05/17/19 12:22 Testing Laboratory Results 05/17/19 10:30 05/17/19 10:30 PT 10.4 Seconds (9.0-12.0) 05/17/19 10:30 INR 1.0 (0.9-1.1) 05/17/19 10:30 APTT 25.6 Seconds (21.0-31.0) 05/17/19 10:30 Blood Type AB Positive 05/17/19 10:30 Antibody Screen NEGATIVE 05/17/19 10:30 Electrocardiogram Date: 05/17/19 Findings: + NSR @ (89) and + NSST changes Stress Test Date: 01/31/19 Type: exercise Findings: + WNL
--- NOTE | 2019-05-17 12:53 | History & Physical Bridge Note ---
Date of Service May 17, 2019 History & Physical Bridge Note I have examined the patient, reviewed the History & Physical and in the interval since the performance of the History & Physical I have noted the following changes of clinical significance: no changes noted
[2019-05-17] MEDS ORDERED: ROPIVACAINE 0.5% 5 MG/ML 30 ML VIAL ONE (13:19)
[2019-05-17] MEDS ORDERED: SODIUM CHLORIDE 0.9% INJ 10 ML VIAL ONE (13:20)
[2019-05-17] MEDS ORDERED: MIDAZOLAM HCL 1 MG/ML 2ML VIAL ONE (13:34)
[2019-05-17] MEDS ORDERED: fentaNYL citrate 100 MCG/2 ML VIAL ONE (14:08)
[2019-05-17] MEDS ORDERED: PROPOFOL IV EMULSION 10 MG/ML 20 ML VIAL IV ONE (14:08)
[2019-05-17] MEDS ORDERED: LIDOCAINE HCL 2% 2 ML VIAL/AMP(20MG/ML) INFIL ONE (14:08)
[2019-05-17] MEDS ORDERED: ATROPINE SULFATE 0.1 MG/ML 10ML SYR IV PRN (14:13)
[2019-05-17] MEDS ORDERED: LABETALOL HCL IV 5 MG/ML 20ML IV PRN (14:13)
[2019-05-17] MEDS ORDERED: BUPIVACAINE/EPINEPHRINE 0.5% MPF 1:200,000 30 ML VIAL ONE (15:16)
[2019-05-17] MEDS ORDERED: BACITRACIN INJ 50,000 UNIT VIAL ONE (15:18)
[2019-05-17] MEDS ORDERED: CEFAZOLIN 2,000 MG/15 ML IV PUSH IV ONE (15:36)
--- NOTE | 2019-05-17 17:03 | Fluoroscopy Report ---
FL ankle LT 2V CLINICAL HISTORY: LEFT ORIF ANKLE COMPARISON STUDY: None FLUOROSCOPY TIME: 9 seconds NUMBER OF FLUOROSCOPIC IMAGES: 2 FINDINGS: Anatomic alignment post open reduction internal fixation of a bimalleolar fracture. IMPRESSION: Anatomic alignment post open reduction internal fixation The above report was generated using voice recognition software. It may contain grammatical, syntax or spelling errors. Electronically signed by: Konrad Monterroso M.D. 05/17/2019 5:01 PM
--- NOTE | 2019-05-17 17:29 | Post Operative Brief Note ---
Immediate Post Op Note v1 Date of Surgery May 17, 2019 Pre & Post Diagnosis Operation Date: 05/17/19 16:35 Pre-Op Diagnosis: Grade 1 open left bimalleolar ankle fracture Post-Op Diagnosis: Grade 1 open left trimalleolar ankle fracture Procedure Operation Date: 05/17/19 16:35 Actual Procedures p Left ankle grade 1 open trimalleolar fracture irrigation and debridement, Open Reduction Internal Fixation left trimalleolar ankle fracture(Left) - Donavan Salazar DO Surgeon Donavan Salazar DO Biomedical Service Engineer Dalton Bedoya PA-C Estimated Blood Loss 10 Findings Consistent with Post-Op Diagnosis Specimens None Anesthesia Type General Regional Complications none Disposition Accompanied Patient To Recovery: No Disposition: Recovery Room
[2019-05-17] MEDS ORDERED: HYDROmorphone INJ 1 MG/ML SYRINGE ONE (17:43)
[2019-05-17] MEDS: HYDROmorphone INJ 1 MG/ML SYRINGE IV PRN ×2 (17:43→17:48)
--- NOTE | 2019-05-17 18:01 | Anesthesiology Progress Note ---
Date of Service May 17, 2019 Anesthesia Post Procedure Vital Signs Vital Signs: Temp Pulse Pulse Pulse Resp BP BP 05/17/19 17:55 74 14 146/93 H 05/17/19 17:45 81 16 147/88 H 05/17/19 17:35 72 19 145/81 H 05/17/19 17:28 36.2 C L 82 14 107/77 05/17/19 15:30 73 16 130/79 05/17/19 15:20 72 15 135/85 05/17/19 15:15 74 16 132/85 05/17/19 15:10 62 16 127/91 05/17/19 15:05 66 14 123/91 05/17/19 15:00 71 12 135/68 05/17/19 14:55 74 12 111/87 05/17/19 14:50 67 10 L 118/80 05/17/19 14:45 68 12 135/78 05/17/19 12:22 37.1 C 95 H 18 147/92 H 05/17/19 10:33 86 20 130/95 05/17/19 07:50 36.5 C 82 20 129/75 Pulse Ox 05/17/19 17:55 97 05/17/19 17:45 100 05/17/19 17:35 100 05/17/19 17:28 100 05/17/19 15:30 100 05/17/19 15:20 100 05/17/19 15:15 100 05/17/19 15:10 100 05/17/19 15:05 100 05/17/19 15:00 100 05/17/19 14:55 100 05/17/19 14:50 100 05/17/19 14:45 100 05/17/19 12:22 95 05/17/19 10:33 96 05/17/19 07:50 92 Pain Intensity Ankle: Pain Intensity: 3 Transfer of Care Handoff Completed per policy Notes Mental Status: alert / awake / arousable Patient Amnestic to Procedure: Yes Nausea / Vomiting: adequately controlled Pain: adequately controlled Airway Patency, RR, SpO2: stable & adequate BP & HR: stable & adequate Hydration State: stable & adequate Anesthetic Complications: no major complications apparent
[2019-05-17] MEDS ORDERED: OXYCODONE HCL IR 5 MG TAB (IMMEDIATE RELEASE) PO PRN (18:13)
[2019-05-17] MEDS ORDERED: NALOXONE HCL 0.4 MG/1 ML VIAL/CARP IV PRN (18:13)
[2019-05-17] MEDS ORDERED: ALUMINUM/MAGNESIUM SUSP 30 ML UDC PO PRN (18:13)
[2019-05-17] MEDS ORDERED: BISACODYL 10 MG SUPP PR PRN (18:13)
[2019-05-17] MEDS ORDERED: MAGNESIUM HYDROXIDE SUSP 30 ML UDC PO PRN (18:13)
[2019-05-17] MEDS: CEFAZOLIN 2000MG 2,000 MG/15 ML SYR IV SCH (19:54)
[2019-05-17] MEDS: DOCUSATE SODIUM 100 MG CAP PO SCH (21:30)
[2019-05-17] MEDS: ACETAMINOPHEN 500 MG TAB PO SCH (21:32)
--- NOTE | 2019-05-17 23:16 | Operative Report ---
DATE OF OPERATION: 05/17/2019 PREOPERATIVE DIAGNOSES: 1. Left ankle grade 1 open bimalleolar ankle fracture. 2. Grade 1 open fracture. POSTOPERATIVE DIAGNOSIS: Left ankle grade 1 open trimalleolar ankle fracture. PROCEDURES: 1. Left ankle open reduction internal fixation, grade 1 open trimalleolar ankle fracture. 2. Irrigation and debridement, grade 1 open fracture. SURGEON: Donavan Salazar DO KEY CUTTER: LARISA Dao who was present for patient positioning, sterile prep and drape, management of retractors and instruments. He was present through the critical portions of the case including wound closure, application of sterile dressing and transport of the patient to recovery. ANESTHESIA: General and regional. SPECIMENS: None. DRAINS: None. COMPLICATIONS: None. BLOOD LOSS: 10 mL. PERTINENT HISTORY: This is a 48-year-old woman who tripped and fell on some stairs while carrying boxes earlier today. She had a grade 1 open ankle fracture of the left ankle. She was transferred to [facility] nonweightbearing. No other associated trauma. No head or neck pain. She was assessed by the Emergency Department physician and orthopedics was consulted. The patient was then evaluated. Radiographs were reviewed. The patient is scheduled for surgery as indicated. All potential risks, benefits, complications, alternatives, rehab, potential for incomplete relief of symptoms, need for further surgery, deep venous thrombosis, pulmonary embolism, , persistent pain, swelling, scarring, weakness, neurovascular injury, wound complications, hardware failure, nonunion, malunion and bone fracture were discussed with the patient. The patient decided to proceed with the procedure as indicated. DESCRIPTION OF PROCEDURE: The patient had a popliteal block administered in the preoperative holding area, she was taken to the operative suite, placed supine on the operating table. After review of consent and identification of proper operative site, the patient was anesthetized and LMA was placed. Tourniquet was placed high on left thigh over cast padding. Left lower extremity was sterilely prepped and draped in the usual fashion, elevated and tourniquet inflated to 350 mmHg. Next, an incision was made directly over the grade 1 open laceration along the medial aspect of the ankle. This measured approximately 5 mm in diameter. The area of extrusion of the bone was then excised with 15 blade scalpel and this incision was then carried proximally and distally exposing the medial malleolus. Periosteum was torn and the fracture was evident. Next, the pulsatile lavage, 3 liters of pulsatile lavage with bacitracin was then used to irrigate the laceration and grade 1 open site. No other devitalized tissue or foreign material was noted. Next, a 15 blade scalpel was used to make an incision over the lateral malleolus. The incision was deepened through subcutaneous tissue. Meticulous hemostasis was achieved with electrocautery. Full thickness skin flaps developed. Large Weitlaner was placed in the incision. A 15 blade was then used to incise the periosteum down to the level of the bone. Fracture was clearly identified. The fracture ends were opened, irrigated with pulsatile lavage, sterile saline with bacitracin and the fracture ends were then debrided with a curette and rongeur. Next, the bone fracture was then reduced using gentle traction and 2 bone forceps. Near anatomic reduction and fixation was performed with the bone forceps and this was then stabilized with a single anterior to posterior 3.5 mm lag screw placed under live fluoroscopic assistance. Next, a seven-hole one-third tubular [employer] stainless steel plate was then contoured with a mallet. The plate was then firmly affixed to the lateral aspect of the lateral malleolus using multiple bone screws under live fluoroscopic assistance to achieve anatomic reduction and fixation. Next, the attention was then directed back toward the medial malleolar fracture and after periosteum was carefully cleared from the fracture site with a 15 blade scalpel. The reduction was performed with a bone forceps and then the medial malleolar fragment was then fixated with two 4.0 cannulated screws placed under live fluoroscopic assistance. Anatomic reduction and fixation was achieved. Stress views demonstrated no instability and final AP and lateral views were obtained. Next, the incisions were copiously irrigated with sterile normal saline until clear. The medial side was closed using intermittent 3-0 Vicryl and 4-0 nylon suture. This was loosely closed to allow for any drainage from the laceration site. Next, the deep flaps were closed using 2-0 Vicryl, closed the deep fascia and periosteum over the plate. The dermis was closed using buried interrupted 3-0 Vicryl and skin was closed with 4-0 nylon. Next, sterile compressive dressing was applied consisting of Xeroform gauze, sterile 4 x 4's, sterile bulky Lorenzo Abreu plaster splint was applied overwrapped with an Jeet wrap. The tourniquet was released. The foot was held in neutral dorsiflexion. The patient was awakened and taken to recovery in a stable condition. I attest to the content of the Intraoperative Record and any orders documented therein. Any exceptions are noted below. JOSIAS
[2019-05-18] MEDS: CEFAZOLIN 2000MG 2,000 MG/15 ML SYR IV SCH (02:51)
[2019-05-18] MEDS: ACETAMINOPHEN 500 MG TAB PO SCH ×2 (05:40→14:10)
[2019-05-18] MEDS ORDERED: CEFAZOLIN 2000MG 2,000 MG/15 ML SYR IV SCH (06:00)
--- NOTE | 2019-05-18 07:51 | Orthopedic Progress Note ---
Date of Service May 18, 2019 Assessment & Plan (1) Open trimalleolar fracture: POD 1 s/p ORIF Gr 1 Open Trimalleolar Ankle Fx Recieved her 24 hours of IV antibx. Will start on oral antibx and continue for 5 days due to open nature of injury. PT/OT today. NWB DVT prophylaxis - SCD's/MACARIO's/ASA Pain management - Oxycodone,Hydromorphone,Tylenol DC plans - If pain is controlled and she progresses well in PT, will plan for dc to home possibly today. Subjective POD 1 s/p Left ORIF Grade 1 Open Trimalloelar ankle fracture. Pt is sitting up in bed awake and alert. No complaints this AM. Pain controlled presently. Physical Exam Physical Exam: Splint clean, dry , and intact. Toes are mobile. Sensation intact. Cap refill less than 2 seconds. Results & Data Vital Signs (Past 12 Hours) Vital Signs Temp Pulse Pulse Resp BP BP Pulse Ox 05/18/19 07:16 36.6 C 75 18 102/67 97 05/18/19 03:05 36.4 C L 84 16 132/81 95 05/17/19 23:18 36.6 C 72 16 123/85 95 05/17/19 20:16 36.5 C 79 16 125/84 93 (1) Open trimalleolar fracture Encounter type: initial encounter Laterality: left
[2019-05-18] MEDS ORDERED: MULTIVITAMIN TAB PO SCH (09:00)
[2019-05-18] MEDS ORDERED: ASPIRIN 325 MG ECTAB PO SCH (09:00)
[2019-05-18] MEDS: DOCUSATE SODIUM 100 MG CAP PO SCH (09:04)
[2019-05-18] MEDS ORDERED: METOPROLOL SUCC 50MG EXT REL TAB PO SCH (09:45)
--- NOTE | 2019-05-18 11:10 | Anesthesiology Progress Note ---
Date of Service May 18, 2019 Anesthesia Post Procedure Vital Signs Vital Signs: Temp Pulse Pulse Pulse Resp BP BP 05/18/19 10:36 75 127/85 05/18/19 07:16 36.6 C 75 18 102/67 05/18/19 03:05 36.4 C L 84 16 132/81 05/17/19 23:18 36.6 C 72 16 123/85 05/17/19 20:16 36.5 C 79 16 125/84 05/17/19 19:13 36.4 C L 80 16 123/83 05/17/19 18:40 36.6 C 77 16 122/85 05/17/19 18:14 37.1 C 78 18 127/85 05/17/19 18:05 37 C 81 17 137/84 05/17/19 17:55 74 14 146/93 H 05/17/19 17:45 81 16 147/88 H 05/17/19 17:35 72 19 145/81 H 05/17/19 17:28 36.2 C L 82 14 107/77 05/17/19 15:30 73 16 130/79 05/17/19 15:20 72 15 135/85 05/17/19 15:15 74 16 132/85 05/17/19 15:10 62 16 127/91 05/17/19 15:05 66 14 123/91 05/17/19 15:00 71 12 135/68 05/17/19 14:55 74 12 111/87 05/17/19 14:50 67 10 L 118/80 05/17/19 14:45 68 12 135/78 05/17/19 12:22 37.1 C 95 H 18 147/92 H Pulse Ox 05/18/19 10:36 05/18/19 07:16 97 05/18/19 03:05 95 05/17/19 23:18 95 05/17/19 20:16 93 05/17/19 19:13 97 05/17/19 18:40 97 05/17/19 18:14 97 05/17/19 18:05 97 05/17/19 17:55 97 05/17/19 17:45 100 05/17/19 17:35 100 05/17/19 17:28 100 05/17/19 15:30 100 05/17/19 15:20 05/17/19 15:15 05/17/19 15:10 05/17/19 15:05 05/17/19 15:00 05/17/19 14:55 05/17/19 14:50 05/17/19 14:45 05/17/19 12:22 95 Pain Intensity Ankle: Pain Intensity: 3 Transfer of Care Handoff Completed per policy Notes Mental Status: alert / awake / arousable and participated in evaluation Patient Amnestic to Procedure: Yes Nausea / Vomiting: adequately controlled Pain: adequately controlled Airway Patency, RR, SpO2: stable & adequate BP & HR: stable & adequate Hydration State: stable & adequate Anesthetic Complications: no major complications apparent
--- NOTE | 2019-05-22 03:48 | Discharge Summary ---
DISCHARGE DIAGNOSIS: Grade 1 open left trimalleolar ankle fracture. 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 CONSULTS: None. COMPLICATIONS: None. PROCEDURES: ORIF, left grade 1 trimalleolar ankle fracture; irrigation and debridement, grade [address] Donavan Salazar on 05/17/2019. BRIEF HISTORY: As dictated in the history and physical. HOSPITAL SUMMARY: The patient was admitted on the above-noted date with the above-noted injury. She was taken to surgery the same day and the above-noted procedure was performed, which she tolerated well. On her first postoperative day, she was sitting up in bed, awake and alert. She had no complaints that morning. Pain was controlled. Vital signs were stable. She was afebrile. Splint was clean, dry and intact. Toes were mobile. Sensation was intact. Capillary refill was less than 2 seconds. She was started on PT and OT protocols, nonweightbearing, and continued on DVT prophylaxis and pain management. She progressed with her PT. Pain was remaining under control and it was felt she could be discharged to home on 05/18/2019. For further review, please see chart. LABORATORY AND X-RAY DATA: As per chart. DISCHARGE INSTRUCTIONS: The patient was discharged home in satisfactory condition on 05/18/2019. DIET: Regular. ACTIVITY: Nonweightbearing on the affected limb at all times with walker, crutches. Follow special care instructions as noted and follow up with Dr. Salazar in 10-14 days. The patient is to call for appointment if one has not been made for you. DISCHARGE MEDICATIONS: Acetaminophen 1000 mg p.o. q. 8 hours, aspirin 325 mg p.o. q.a.m., cephalexin 500 mg p.o. q.i.d. for 7 days, and oxycodone 5 mg p.o. q. 4 hours p.r.n. Resume metoprolol succinate 50 mg p.o. daily.
== END 2019-05-18 15:00 | disposition home or self-care (01) | DRG 494 ==
LOC: ED 07:41 → 3W 10:11